=== PATIENT | male | born 1990 | race African-American/Black ===

== ENCOUNTER 2020-03-07 02:15 | Emergency (ER) | payer OTHER, MEDICAID ==
[~2020-03-07] VITALS: Ht 182.9 cm; Wt 83.9 kg
--- NOTE | 2020-03-07 02:15 | NUR ---
TO ER BED 12 BIB [employer] C/O BIZARRE BEHAVIOR. PER EMS PT RUNNING UP AND DOWN THE STREET BANGING ON WINDOWS, ERRATIC BEHAVIOR. PT ALTERED, UNCOOPERATIVE. PLACE PT ON CARDIAC MONITORING, CONTINUOUS POX. ER MD AT BEDSIDE TO EVAL PT WITH ORDERS RECEIVED. WILL CARRY OUT ORDERS.
[2020-03-07] MEDS ORDERED: diphenhydrAMINE HCL 50 MG/ML VIAL ONE (02:17)
[2020-03-07] MEDS ORDERED: LORAZEPAM INJ 2 MG/ML VIAL ONE (02:17)
[2020-03-07] MEDS ORDERED: HALOPERIDOL LACTATE INJ 5 MG/ML VIAL ONE (02:17)
--- NOTE | 2020-03-07 02:26 | NUR ---
PT MEDICATED ORDERED BY ER .
[2020-03-07] MEDS ORDERED: HALOPERIDOL LACTATE INJ 5 MG/ML VIAL IM ONE (02:30)
[2020-03-07] MEDS ORDERED: LORAZEPAM INJ 2 MG/ML VIAL IM ONE (02:30)
[2020-03-07] MEDS ORDERED: diphenhydrAMINE HCL 50 MG/ML VIAL IM ONE (02:30)
[2020-03-07 05:32] LABS: BASOPHILS % (AUTO) 0.8 % (0.0-2.0); EOSINOPHILS % (AUTO) 2.3 % (0.0-6.0); HEMATOCRIT 41 % (39-51); HEMOGLOBIN 13.3 g/dL (13.5-17.5); LYMPHOCYTES # (AUTO) 0.9 /CMM (0.8-4.8); LYMPHOCYTES % (AUTO) 18.5 % (20.0-44.0); MEAN CORPUSCULAR HGB CONC 33 g/dl (31.0-36.0); MEAN CORPUSCULAR VOLUME 83 fL (80-96); MONOCYTES # (AUTO) 0.6 /CMM (0.1-1.30); MONOCYTES % (AUTO) 12.2 % (2.0-12.0); NEUTROPHILS # (AUTO) 3.3 /CMM (1.8-8.9); NEUTROPHILS % (AUTO) 66.2 % (43.0-81.0); PLATELET COUNT (AUTO) 250 /CMM (150-450); RED BLOOD CELL COUNT(AUTO) 4.94 MIL/uL (4.5-6.0); WHITE BLOOD COUNT (AUTO) 4.9 K/uL (4.3-11.0)
[2020-03-07 05:51] LABS: CALCIUM, SERUM 8.6 mg/dL (8.5-10.1); CARBON DIOXIDE 28 mmol/L (21-32); CHLORIDE 109 mmol/L (98-107); CREATININE 1.1 mg/dL (0.6-1.3); GLUCOSE 87 mg/dL (74-106); POTASSIUM 4.3 mmol/L (3.5-5.1); SODIUM SERUM 145 mmol/L (136-145); UREA NITROGEN, BLOOD 16 mg/dL (7-18)
[2020-03-07 05:58] LABS: ALANINE AMINOTRANSFERASE 40 U/L (12-78); ALBUMIN 3.6 g/dL (3.4-5.0); ALCOHOL, BLOOD < 3 mg/dL (0-0); ALKALINE PHOSPHATASE 79 U/L (46-116); ASPARTATE AMINOTRANSFERASE 36 U/L (15-37); BILIRUBIN,DIRECT 0.2 mg/dL (0.0-0.2); BILIRUBIN,TOTAL 0.6 mg/dL (0.2-1.0); TOTAL PROTEIN, SERUM 6.4 g/dL (6.4-8.2)
[2020-03-07 06:10] LABS: ACETAMINOPHEN 0 ug/ml (10-30); SALICYLATE 1.5 mg/dL (2.8-20.0)
--- NOTE | 2020-03-07 07:38 | NUR ---
ASSESSED PT ON BED ASLEEP EASILY AROUSABLE. NOT IN RESPIRATORY DISTRESS, V/S STABLE, KEPT RESTED AND COMFORTABLE. WILL CONTINUE TO MONITOR.
--- NOTE | 2020-03-07 08:49 | NUR ---
PT IS AWAKE AND ALERT, STATED HE IS NOT SUICIDAL AND WANTS TO BE DISCHARGED. ER MD AWARE.
--- NOTE | 2020-03-07 08:49 | NUR ---
Patient given written and verbal discharge instructions. Patient verbalizes understanding of instructions. Patient is ambulatory with steady gait. Refuses offer of penitentiary placement. Patient given list of available shelters in surrounding area.
[2020-03-07 08:50] VITALS: BP 119/64
== END 2020-03-07 08:51 | disposition home or self-care (01) ==
LOC: ER 02:17
DX: R46.1 Bizarre personal appearance (principal); R41.82 Altered mental status, unspecified
CPT/HCPCS: 36415; 80048; 80076; 80307; 80329; 85025; 96372 ×2; 99285; G0480; J1200; J1630; J2060